=== PATIENT | female | born 1965 | race Caucasian/White ===

== ENCOUNTER → 2020-10-15 | Outpatient (CLI) | payer BC ==
[~2020-10-15] MED LIST: ALLEGRA ALLERG180 MG PO; ARIPIPRAZOLE10 MG; CELECOXIB200 MG; CLONAZEPAM2 M1 PO; ESTAZOLAM2 MG; FLUTICASONE-SA1 EAC5; FUSION PLUS CA1 EACH PO; HYDRALAZINE HCL25 MG PO; KETO10TA2 PO; LITHIUM CARBON450 MG; LITIUM PO; MEGESTROL ACETA40 MG; OMEPRAZOLE40 MG PO; PERCOCET 5-3251 EACH PO; PROAIR HFA8.5 GM IH; RAYOS1 MG PO; RISPERDAL2 MG PO; SIMBICORT; SINGULAIR10 MG PO; SYMBICORT 16010.2 GM IH; VENLAFAXINE HCL75 M2 PO; VENLAFAXINE HCL75 MG; ZOLOFT50 MG PO; [UNRECOGNIZED DRUG - OTHER] PO; [UNRECOGNIZED DRUG - OTHER] PO
== END | disposition home or self-care (01) ==
LOC: RAD 13:47
PROVIDERS: ATTEND Obstetrics & Gynecology
DX: N80.1 Endometriosis of ovary (principal); N95.0 Postmenopausal bleeding; R10.2 Pelvic and perineal pain; Z01.810 Encounter for preprocedural cardiovascular examination; Z01.811 Encounter for preprocedural respiratory examination

== ENCOUNTER 2020-10-25 10:15 | Day surgery (SDC) | payer OTHER ==
[~2020-10-25 10:15] MED LIST changes: -ARIPIPRAZOLE10 MG; -CELECOXIB200 MG; -ESTAZOLAM2 MG; -FUSION PLUS CA1 EACH PO; -KETO10TA2 PO; -LITHIUM CARBON450 MG; -MEGESTROL ACETA40 MG; -PERCOCET 5-3251 EACH PO; -SIMBICORT; -VENLAFAXINE HCL75 MG; -[UNRECOGNIZED DRUG - OTHER] PO; -[UNRECOGNIZED DRUG - OTHER] PO
[2020-10-25] MEDS ORDERED: KETO10TA2 PO (16:11)
== END 2020-10-25 18:45 | disposition home or self-care (01) ==
LOC: CIR.AMB 10:15
PROVIDERS: ATTEND Obstetrics & Gynecology
DX: N84.0 Polyp of corpus uteri (principal); Z20.822 Contact with and (suspected) exposure to COVID-19

== ENCOUNTER 2020-12-06 07:00 | Inpatient (IN) | payer BC, OTHER ==
[~2020-12-06] VITALS: Ht 154.9 cm; Wt 60.3 kg
[~2020-12-06 07:00] MED LIST changes: +KETO10TA2 PO
[2020-12-06] MEDS ORDERED: [UNRECOGNIZED DRUG - OTHER] PO (10:25)
[2020-12-06] MEDS ORDERED: [UNRECOGNIZED DRUG - OTHER] PO (10:26)
[2020-12-06] MEDS ORDERED: SIMBICORT (10:28)
[2020-12-13] MEDS ORDERED: ARIPIPRAZOLE10 MG (08:16)
[2020-12-13] MEDS ORDERED: ESTAZOLAM2 MG (08:16)
[2020-12-13] MEDS ORDERED: VENLAFAXINE HCL75 MG (08:16)
[2020-12-13] MEDS ORDERED: LITHIUM CARBON450 MG (08:16)
[2020-12-13] MEDS ORDERED: CELECOXIB200 MG (08:17)
[2020-12-13] MEDS ORDERED: MEGESTROL ACETA40 MG (08:17)
[2020-12-16] MEDS ORDERED: PERCOCET 5-3251 EACH PO (11:02)
[2020-12-16] MEDS ORDERED: FUSION PLUS CA1 EACH PO (11:03)
[2020-12-16] MEDS ORDERED: KETO10TA2 PO (11:03)
== END 2020-12-16 12:47 | disposition home or self-care (01) | DRG 743 ==
LOC: OB/GYN 12-13 06:00 → O/R 12-13 06:00 → OB/GYN 12-13 07:00
PROVIDERS: Obstetrics & Gynecology Gynecologic Oncology; Surgery; Urology; ADMIT Obstetrics & Gynecology; ATTEND Obstetrics & Gynecology
PROC: 0T9880Z Drainage of Bilateral Ureters with Drainage Device, Via Natural or Artificial Opening Endoscopic (ICD-10-PCS; 2020-12-13)
PROC: 0DNN0ZZ Release Sigmoid Colon, Open Approach (ICD-10-PCS; 2020-12-13)
PROC: 0UT90ZZ Resection of Uterus, Open Approach (ICD-10-PCS; principal; 2020-12-13 07:00)
PROC: 0UT70ZZ Resection of Bilateral Fallopian Tubes, Open Approach (ICD-10-PCS; 2020-12-13 07:00)
PROC: 0USG0ZZ Reposition Vagina, Open Approach (ICD-10-PCS; 2020-12-13 07:00)
PROC: 0DNW0ZZ Release Peritoneum, Open Approach (ICD-10-PCS; 2020-12-13 07:00)
DX: D26.1 Other benign neoplasm of corpus uteri (principal); N80.0 Endometriosis of uterus; N80.1 Endometriosis of ovary; N70.11 Chronic salpingitis; N73.6 Female pelvic peritoneal adhesions (postinfective); N99.4 Postprocedural pelvic peritoneal adhesions; D50.8 Other iron deficiency anemias; N83.291 Other ovarian cyst, right side